=== PATIENT | female | born 1935 | race Caucasian/White ===

== ENCOUNTER 2021-09-20 17:46 | Inpatient (IN) | payer MEDICARE ==
[~2021-09-20] VITALS: Ht 162.6 cm; Wt 54.6 kg
[2021-09-20] MEDS ORDERED: NS 500 ML IV ONE (18:00)
[2021-09-20] MEDS: COMBIVENT RESPIMAT 100-20MCG INHALER 4GM INH SCH ×3 (18:10→19:12)
[2021-09-20 18:11] VITALS: O2SAT 94
[2021-09-20 18:49] LABS: HEMATOCRIT 47.7 % (36.0-47.0); HEMOGLOBIN 15.6 g/dl (12.0-15.5); MEAN CORPUSCULAR HEMOGLOBIN 30.9 pg (27.0-33.0); MEAN CORPUSCULAR HGB CONC 32.7 g/dl (32.0-36.5); MEAN CORPUSCULAR VOLUME 94.5 fl (80.0-96.0); PLATELET COUNT, AUTOMATED 187 10^3/uL (150-450); RED BLOOD COUNT 5.05 10^6/uL (4.00-5.40); WHITE BLOOD COUNT 21.4 10^3/uL (4.0-10.0)
[2021-09-20] MEDS ORDERED: cefTRIAXone SOD 1 GM in D5W MINI-BAG PLUS 50 ML IV ONE (18:50)
[2021-09-20] MEDS ORDERED: AZITHROMYCIN INJ 500 MG, VIAL MATE ADAPTER 1 EACH in NS 250 ML IV ONE (18:50)
[2021-09-20 19:00] LABS: INR 1.04
[2021-09-20 19:01] LABS: PARTIAL THROMBOPLASTIN TIME 42.7 SECONDS (25.9-37.0)
[2021-09-20 19:13] LABS: ALBUMIN 3.3 GM/DL (3.2-5.2); C REACTIVE PROTEIN QUANTITATIV 8.68 MG/DL (0.00-0.30); CALCIUM LEVEL 9.1 MG/DL (8.8-10.2); CREATININE FOR GFR 1.07 MG/DL (0.55-1.30); MAGNESIUM LEVEL 1.9 MG/DL (1.8-2.4); POTASSIUM SERUM 3.8 MEQ/L (3.5-5.1); TOTAL PROTEIN 6.7 GM/DL (6.4-8.2)
[2021-09-20 19:14] LABS: CK-MB VALUE MASS 5.2 NG/ML (<3.6); MB/CK RELATIVE INDEX 4.44 (< OR =4)
[2021-09-20 19:25] LABS: LYMPHOCYTES 4 % (16-44); METAMYELOCYTES 2 % (0-0); MONOCYTES 8 % (0-5); NEUTROPHILS 63 % (28-66)
[2021-09-20 19:26] LABS: PLATELET ESTIMATE NORMAL (NORMAL); TOXIC VACUOLATION 1+
[2021-09-20] MEDS: ADVAIR HFA 115/21MCG INHALER INH SCH (20:00)
[2021-09-20] MEDS: FLECAINIDE 50MG TABLET PO SCH (21:00)
[2021-09-20 22:15] LABS: MB/CK RELATIVE INDEX 2.8 (< OR =4)
[2021-09-21] MEDS ORDERED: ALBUTEROL 90 MCG/ACT 8GM HFA INHALER INH PRN
[2021-09-21] MEDS ORDERED: MOM 30ML SUSPENSION UDC PO PRN
[2021-09-21] MEDS ORDERED: OMEP1CAP73 PO (00:26)
[2021-09-21] MEDS ORDERED: ADV250INH INH (00:26)
[2021-09-21] MEDS ORDERED: LOSA50TA28 PO (00:26)
[2021-09-21] MEDS ORDERED: FERR1TAB8 PO (00:26)
[2021-09-21] MEDS ORDERED: ATOR1TAB21 PO (00:26)
[2021-09-21] MEDS ORDERED: VITMTA PO (00:26)
[2021-09-21] MEDS ORDERED: CVS-161 PO (00:26)
[2021-09-21] MEDS ORDERED: ATEN50TA2 PO (00:26)
[2021-09-21] MEDS ORDERED: FURO20TA2 PO (00:26)
[2021-09-21] MEDS ORDERED: SPIR12.9 INH (00:26)
[2021-09-21] MEDS ORDERED: FLON1SPR (00:26)
[2021-09-21] MEDS ORDERED: DIGO0.123 PO (00:26)
[2021-09-21] MEDS ORDERED: ALEN70TA82 PO (00:26)
[2021-09-21] MEDS ORDERED: ELIQ2.5T PO (00:26)
[2021-09-21] MEDS ORDERED: FLEC50HA PO (00:26)
[2021-09-21] MEDS ORDERED: HOME MED LIST COMPLETE! XX SCH (00:30)
[2021-09-21] MEDS: DOXYCYCLINE HYCLATE 100 MG in D5W MINI-BAG PLUS 100 ML IV SCH ×2 (01:51→13:24)
[2021-09-21] MEDS: LOSARTAN 50MG TABLET PO SCH ×2 (01:52→21:11)
[2021-09-21 04:55] VITALS: BP 164/69
[2021-09-21 05:59] LABS: HEMATOCRIT 46.8 % (36.0-47.0); HEMOGLOBIN 15.2 g/dl (12.0-15.5); MEAN CORPUSCULAR HEMOGLOBIN 30.5 pg (27.0-33.0); MEAN CORPUSCULAR HGB CONC 32.5 g/dl (32.0-36.5); PLATELET COUNT, AUTOMATED 178 10^3/uL (150-450); RED BLOOD COUNT 4.98 10^6/uL (4.00-5.40); WHITE BLOOD COUNT 21.2 10^3/uL (4.0-10.0)
[2021-09-21 06:29] LABS: ALBUMIN 2.8 GM/DL (3.2-5.2); BILIRUBIN,TOTAL 0.6 MG/DL (0.2-1.0); CALCIUM LEVEL 8.7 MG/DL (8.8-10.2); CREATININE FOR GFR 1.03 MG/DL (0.55-1.30); GLOMERULAR FILTRATION RATE 54.3 (>32); TOTAL PROTEIN 6.1 GM/DL (6.4-8.2)
[2021-09-21 07:46] VITALS: BP 134/63
[2021-09-21] MEDS: ADVAIR HFA 115/21MCG INHALER INH SCH ×2 (07:46→20:00)
[2021-09-21] MEDS: atenoloL 50 MG TAB PO SCH (09:00)
[2021-09-21] MEDS ORDERED: FUROSEMIDE 20MG/2ML VIAL (J1940) IV SCH (09:00)
[2021-09-21] MEDS: FLUTICASONE PROP 0.05% NASAL SPRAY 16 GM (FLONASE) SCH ×2 (09:57→21:12)
[2021-09-21] MEDS: DOCUSATE SODIUM 100MG CAPSULE PO SCH ×2 (09:57→21:00)
[2021-09-21] MEDS: DIGOXIN 0.125 MG TAB PO SCH (09:58)
[2021-09-21] MEDS: APIXABAN 2.5 MG TAB (ELIQUIS) PO SCH ×2 (09:59→21:12)
[2021-09-21] MEDS: OMEPRAZOLE 20MG CAP PO SCH (09:59)
[2021-09-21] MEDS: FLECAINIDE 50MG TABLET PO SCH ×2 (10:00→21:11)
[2021-09-21 12:11] VITALS: BP 130/57
[2021-09-21] MEDS: ALBUTEROL SULFATE 2.5 MG/0.5 ML INH NEB SOLN NEB SCH ×4 (12:57→23:11)
[2021-09-21 16:11] VITALS: BP 131/58
[2021-09-21] MEDS: cefTRIAXone SOD 1 GM in D5W MINI-BAG PLUS 50 ML IV SCH (18:51)
[2021-09-21 20:00] VITALS: BP 147/63
[2021-09-22] MEDS: DOXYCYCLINE HYCLATE 100 MG in D5W MINI-BAG PLUS 100 ML IV SCH ×2 (02:05→13:55)
[2021-09-22 04:00] VITALS: BP 143/69
[2021-09-22] MEDS: ALBUTEROL SULFATE 2.5 MG/0.5 ML INH NEB SOLN NEB SCH ×5 (04:04→20:00)
[2021-09-22] MEDS: ADVAIR HFA 115/21MCG INHALER INH SCH ×2 (07:29→20:08)
[2021-09-22 07:38] VITALS: BP 145/58
[2021-09-22] MEDS: DOCUSATE SODIUM 100MG CAPSULE PO SCH ×2 (10:05→20:56)
[2021-09-22] MEDS: FLECAINIDE 50MG TABLET PO SCH ×2 (10:06→20:56)
[2021-09-22] MEDS: OMEPRAZOLE 20MG CAP PO SCH (10:06)
[2021-09-22] MEDS: atenoloL 50 MG TAB PO SCH (10:06)
[2021-09-22] MEDS: ATORVASTATIN 20 MG TAB PO SCH (10:06)
[2021-09-22] MEDS: APIXABAN 2.5 MG TAB (ELIQUIS) PO SCH ×2 (10:06→20:56)
[2021-09-22] MEDS: FLUTICASONE PROP 0.05% NASAL SPRAY 16 GM (FLONASE) SCH ×2 (10:07→20:55)
[2021-09-22] MEDS: DIGOXIN 0.125 MG TAB PO SCH (10:07)
[2021-09-22 16:19] VITALS: BP 140/65
[2021-09-22] MEDS: cefTRIAXone SOD 1 GM in D5W MINI-BAG PLUS 50 ML IV SCH (17:54)
[2021-09-22 20:00] VITALS: BP 129/60
[2021-09-22] MEDS: LOSARTAN 50MG TABLET PO SCH (20:56)
[2021-09-23 00:10] VITALS: BP 146/68
[2021-09-23] MEDS: ALBUTEROL SULFATE 2.5 MG/0.5 ML INH NEB SOLN NEB SCH ×6 (00:53→23:51)
[2021-09-23] MEDS: DOXYCYCLINE HYCLATE 100 MG in D5W MINI-BAG PLUS 100 ML IV SCH ×2 (01:20→13:14)
[2021-09-23 04:00] VITALS: BP 166/66
[2021-09-23 07:49] VITALS: BP 132/60
[2021-09-23 07:54] LABS: HEMATOCRIT 40.2 % (36.0-47.0); HEMOGLOBIN 13.2 g/dl (12.0-15.5); MEAN CORPUSCULAR HEMOGLOBIN 30.9 pg (27.0-33.0); MEAN CORPUSCULAR HGB CONC 32.8 g/dl (32.0-36.5); MEAN CORPUSCULAR VOLUME 94.1 fl (80.0-96.0); PLATELET COUNT, AUTOMATED 169 10^3/uL (150-450); RED BLOOD COUNT 4.27 10^6/uL (4.00-5.40); WHITE BLOOD COUNT 12.6 10^3/uL (4.0-10.0)
[2021-09-23 08:24] LABS: BLOOD UREA NITROGEN 15 MG/DL (7-18); CALCIUM LEVEL 9.1 MG/DL (8.8-10.2); CARBON DIOXIDE LEVEL 29 MEQ/L (21-32); CHLORIDE LEVEL 108 MEQ/L (98-107); CREATININE FOR GFR 0.74 MG/DL (0.55-1.30); GLOMERULAR FILTRATION RATE > 60.0 (>32); GLUCOSE, FASTING 98 MG/DL (70-100); POTASSIUM SERUM 3.6 MEQ/L (3.5-5.1); SODIUM LEVEL 141 MEQ/L (136-145)
[2021-09-23 08:27] LABS: LYMPHOCYTES 5 % (16-44); MONOCYTES 2 % (0-5); NEUTROPHILS 91 % (28-66); PLATELET ESTIMATE NORMAL (NORMAL)
[2021-09-23 08:28] LABS: ANISOCYTOSIS 1+
[2021-09-23 08:45] VITALS: BP 137/60
[2021-09-23] MEDS: FLUTICASONE PROP 0.05% NASAL SPRAY 16 GM (FLONASE) SCH ×2 (09:00→23:19)
[2021-09-23] MEDS: DIGOXIN 0.125 MG TAB PO SCH (09:34)
[2021-09-23] MEDS: DOCUSATE SODIUM 100MG CAPSULE PO SCH ×2 (09:34→22:27)
[2021-09-23] MEDS: atenoloL 50 MG TAB PO SCH (09:34)
[2021-09-23] MEDS: APIXABAN 2.5 MG TAB (ELIQUIS) PO SCH ×2 (09:34→22:27)
[2021-09-23] MEDS: OMEPRAZOLE 20MG CAP PO SCH (09:34)
[2021-09-23] MEDS: FLECAINIDE 50MG TABLET PO SCH ×2 (10:38→22:28)
[2021-09-23] MEDS: ADVAIR HFA 115/21MCG INHALER INH SCH ×2 (11:51→20:35)
[2021-09-23 14:00] VITALS: BP 144/62
[2021-09-23] MEDS: cefTRIAXone SOD 1 GM in D5W MINI-BAG PLUS 50 ML IV SCH (17:45)
[2021-09-23 22:00] VITALS: BP 164/76
[2021-09-23] MEDS: LOSARTAN 50MG TABLET PO SCH (22:28)
[2021-09-24] MEDS: DOXYCYCLINE HYCLATE 100 MG in D5W MINI-BAG PLUS 100 ML IV SCH (01:00)
[2021-09-24] MEDS: ALBUTEROL SULFATE 2.5 MG/0.5 ML INH NEB SOLN NEB SCH ×2 (04:00→08:00)
[2021-09-24 06:00] VITALS: BP 155/75
[2021-09-24 06:26] LABS: HEMATOCRIT 38.4 % (36.0-47.0); HEMOGLOBIN 12.7 g/dl (12.0-15.5); MEAN CORPUSCULAR HEMOGLOBIN 30.9 pg (27.0-33.0); MEAN CORPUSCULAR HGB CONC 33.1 g/dl (32.0-36.5); MEAN CORPUSCULAR VOLUME 93.4 fl (80.0-96.0); PLATELET COUNT, AUTOMATED 185 10^3/uL (150-450); RED BLOOD COUNT 4.11 10^6/uL (4.00-5.40); WHITE BLOOD COUNT 7.7 10^3/uL (4.0-10.0)
[2021-09-24 06:42] LABS: BLOOD UREA NITROGEN 13 MG/DL (7-18); CARBON DIOXIDE LEVEL 29 MEQ/L (21-32); CHLORIDE LEVEL 107 MEQ/L (98-107); CREATININE FOR GFR 0.69 MG/DL (0.55-1.30); GLOMERULAR FILTRATION RATE > 60.0 (>32); GLUCOSE, FASTING 94 MG/DL (70-100); POTASSIUM SERUM 3.7 MEQ/L (3.5-5.1); SODIUM LEVEL 142 MEQ/L (136-145)
[2021-09-24 07:35] LABS: ATYPICAL LYMPH 1 % (0-5); LYMPHOCYTES 19 % (16-44); MONOCYTES 3 % (0-5); NEUTROPHILS 75 % (28-66)
[2021-09-24 07:36] LABS: PLATELET ESTIMATE NORMAL (NORMAL)
[2021-09-24] MEDS ORDERED: DOXY100C3 PO (07:52)
[2021-09-24] MEDS ORDERED: CEFD300C41 PO (07:52)
[2021-09-24] MEDS: ADVAIR HFA 115/21MCG INHALER INH SCH (08:10)
[2021-09-24] MEDS: DOCUSATE SODIUM 100MG CAPSULE PO SCH (09:00)
[2021-09-24 09:15] LABS: DIGOXIN LEVEL 1.3 NG/ML (0.5-2.0)
[2021-09-24] MEDS: FLECAINIDE 50MG TABLET PO SCH (09:43)
[2021-09-24] MEDS: OMEPRAZOLE 20MG CAP PO SCH (09:43)
[2021-09-24] MEDS: APIXABAN 2.5 MG TAB (ELIQUIS) PO SCH (09:43)
[2021-09-24] MEDS: ATORVASTATIN 20 MG TAB PO SCH (09:43)
[2021-09-24 09:44] VITALS: BP 147/66
[2021-09-24] MEDS: atenoloL 50 MG TAB PO SCH (09:44)
[2021-09-24] MEDS: DIGOXIN 0.125 MG TAB PO SCH (09:44)
[2021-09-24] MEDS: FLUTICASONE PROP 0.05% NASAL SPRAY 16 GM (FLONASE) SCH (09:44)
== END 2021-09-24 11:10 | disposition home or self-care (01) | DRG 871 ==
LOC: M ED 17:46 → M ED INP 23:48 → ENRESERV 09-21 03:45 → M PCU 09-21 04:57 → M MSPAV 09-23 08:44
PROVIDERS: ADMIT Family Medicine; ATTEND Internal Medicine Nephrology
PROC: B246ZZZ Ultrasonography of Right and Left Heart (ICD-10-PCS; principal; 2021-09-21)
DX: A41.9 Sepsis, unspecified organism (principal); J18.9 Pneumonia, unspecified organism; E87.2 Acidosis; I24.8 Other forms of acute ischemic heart disease; I50.9 Heart failure, unspecified; I48.0 Paroxysmal atrial fibrillation; Z79.01 Long term (current) use of anticoagulants; I11.0 Hypertensive heart disease with heart failure; J45.909 Unspecified asthma, uncomplicated; Z85.038 Personal history of other malignant neoplasm of large intestine; Z20.822 Contact with and (suspected) exposure to COVID-19; E78.5 Hyperlipidemia, unspecified; K21.9 Gastro-esophageal reflux disease without esophagitis; Z96.653 Presence of artificial knee joint, bilateral; Z79.899 Other long term (current) drug therapy; Z91.040 Latex allergy status; R77.8 Other specified abnormalities of plasma proteins; R09.02 Hypoxemia